=== PATIENT | male | born 1995 | race Caucasian/White ===

== ENCOUNTER 2018-04-01 21:23 | Emergency (ER) | payer OTHER ==
[~2018-04-01] VITALS: Ht 177.8 cm; Wt 86.2 kg
[2018-04-02] MEDS ORDERED: cefTRIAXone SOD 1,000 MG VL IM ONE (00:30)
[2018-04-02] MEDS ORDERED: ACETAMINOPHEN/CODEINE#3 (300/30mg) TAB PO ONE (00:30)
[2018-04-02 02:43] VITALS: BP 128/84
== END 2018-04-02 02:44 | disposition home or self-care (01) ==
LOC: ER 21:28
DX: S61.101A Unspecified open wound of right thumb with damage to nail, initial encounter (principal); X58.XXXA Exposure to other specified factors, initial encounter; Y93.89 Activity, other specified; Y92.89 Other specified places as the place of occurrence of the external cause; Y99.0 Civilian activity done for income or pay
CPT/HCPCS: 11730; 96372; 99283; J0696